=== PATIENT | male | born 1975 | race Caucasian/White ===

== ENCOUNTER 2016-12-25 02:19 | Emergency (ER) | payer SELFPAY ==
[~2016-12-25] VITALS: Ht 190.5 cm; Wt 131.5 kg
[2016-12-25 02:20] VITALS: BP_SYST 118
--- NOTE | 2016-12-25 02:49 | NUR ---
Patient to ER bed 8 to gown for evaluation. Side rails up. Report given to Jani PYLE.
--- NOTE | 2016-12-25 02:50 | NUR ---
Pt states that around midnight, pt fell off the top off of a 13 ft ladder and landed on his L side. Pt denies KO. Pt states that "it knocked the wind out of me." His whole L side is sore and tender 07/01. No obvious deformities noted. Pupils PERRLA. Good ROM in all extremities. Will continue to monitor. No other injuries or complaints mentioned/noted.
--- NOTE | 2016-12-25 02:55 | NUR ---
Pt placed in C collar per MD orders.
--- NOTE | 2016-12-25 02:55 | NUR ---
ER Dr. Boyle at bedside examining patient.
--- NOTE | 2016-12-25 03:15 | NUR ---
# 18 gauge angiocath placed to R hand. Use of asceptic technique. Opsite placed over site. Blood return noted. Blood for lab drawn from site. Flushed with 10 cc of normal saline. No evidence of infiltration noted. Patient tolerated well.
[2016-12-25] MEDS ORDERED: KETOROLAC TROMETHAMINE 30 MG VIAL IVP ONE (03:30)
[2016-12-25 03:46] LABS: BILIRUBIN,URINE NEGATIVE (NEGATIVE); BLOOD, URINE NEGATIVE (NEGATIVE); CLARITY/URINE CLEAR (CLEAR); COLOR,URINE YELLOW (YELLOW); GLUCOSE,URINE NEGATIVE (NEGATIVE); KETONES,URINE NEGATIVE (NEGATIVE); LEUKOCYTE ESTERASE ,URINE NEGATIVE (NEGATIVE); NITRITE, URINE NEGATIVE (NEGATIVE); PROTEIN URINE NEGATIVE (NEGATIVE); UROBILINOGEN,URINE 0.2 (0.2-1.0)
[2016-12-25 03:48] LABS: ANION GAP 6 (5-15); CALCIUM 9.1 mg/dL (8.4-11.0); CHLORIDE 96 mmol/L (98-107); CREATININE 0.93 mg/dL (0.55-1.30); GLUCOSE 94 mg/dL (70-99); POTASSIUM 3.8 mmol/L (3.5-5.1); SODIUM SERUM 131 mmol/L (136-145); UREA NITROGEN, BLOOD 12 mg/dL (8-21)
[2016-12-25 03:53] LABS: ALANINE AMINOTRANSFERASE 23 U/L (12-78); ALBUMIN 3.9 g/dL (3.4-4.8); ASPARTATE AMINOTRANSFERASE 11 U/L (10-37); GFR AFRICAN AMERICAN 115 mL/min (>90); TOTAL BILIRUBIN 0.4 mg/dL (0.0-1.0)
[2016-12-25 03:54] LABS: ALCOHOL, BLOOD < 3 mg/dL (<10)
[2016-12-25 03:55] LABS: BASOPHILS # (AUTO) 0.1 K/uL (0.0-0.2); BASOPHILS % (AUTO) 1.6 % (0.0-2.0); EOSINOPHILS # (AUTO) 0.1 K/uL (0.0-0.4); EOSINOPHILS % (AUTO) 1.9 % (0.0-4.0); HEMATOCRIT 41.7 % (36-54); LYMPHOCYTES # (AUTO) 1.8 K/uL (1.0-5.5); LYMPHOCYTES % (AUTO) 27.3 % (20.5-51.5); MEAN CORPUSCULAR HEMOGLOBIN 29 pg (27-31); MEAN CORPUSCULAR HGB CONC 34 % (32-36); MEAN CORPUSCULAR VOLUME 87 fL (79.0-98.0); MONOCYTES # (AUTO) 0.6 K/uL (0.0-1.0); NEUTROPHILS # (AUTO) 4.1 K/uL (1.8-7.7); NEUTROPHILS % (AUTO) 60.2 % (40.0-70.0); PLATELET COUNT (AUTO) 261 K/uL (130-430); RED CELL DISTRIBUTION WIDTH 14.3 % (9.0-15.0); WHITE BLOOD COUNT (AUTO) 6.7 K/uL (4.8-10.8)
[2016-12-25 03:57] LABS: BARBITURATE, URINE NEGATIVE (NEG <=200); BENZODIAZEPINE, URINE NEGATIVE (NEG <=150); CANNABINOID, URINE POSITIVE (NEG <=50); COCAINE, URINE NEGATIVE (NEG <=150); METHAMPHETAMINES SCREEN,URINE NEGATIVE (NEG <=500); OPIATE, URINE POSITIVE (NEG <=100); PHENCYCLIDINE SCREEN,URINE NEGATIVE (NEG <=25); UR TRICYCLIC ANTIDEPRESSANTS POSITIVE (NEG <=300); URINE AMPHETAMINE NEGATIVE (NEG <=500); URINE METHADONE NEGATIVE (NEG <=200); URINE OXYCODONE SCREEN NEGATIVE (NEG <=100); URINE PROPOXYPHENE SCREEN NEGATIVE (NEG <=300)
[2016-12-25 04:22] VITALS: BP_SYST 118
--- NOTE | 2016-12-25 04:22 | NUR ---
Patient given written and verbal discharge instructions and verbalizes understanding. ER MD discussed with patient the results and treatment provided. Patient in stable condition. ID arm band removed. IV catheter removed intact and dressing applied, no active bleeding. Rx of Motrin given. Patient educated on pain management and to follow up with PMD. Pain Scale 2/10. Opportunity for questions provided and answered.
== END 2016-12-25 04:22 | disposition home or self-care (01) ==
LOC: SED 02:19
DX: S40.012A Contusion of left shoulder, initial encounter (principal); R07.81 Pleurodynia; F17.200 Nicotine dependence, unspecified, uncomplicated; W11.XXXA Fall on and from ladder, initial encounter; Y93.89 Activity, other specified; Y99.8 Other external cause status; Y92.89 Other specified places as the place of occurrence of the external cause
CPT/HCPCS: 29105; 36415; 71010; 71110; 72040; 73030; 80053; 80307; 81003; 85025; 96374; 99285; G0482; J1885

== ENCOUNTER 2020-02-17 01:11 | Emergency (ER) | payer MEDICAID ==
[~2020-02-17] VITALS: Ht 190.5 cm; Wt 136.1 kg
[2020-02-17 01:15] VITALS: BP_SYST 156
--- NOTE | 2020-02-17 01:15 | NUR ---
Patient to ER bed HALLWAY 1 to gown for evaluation. Side rails up. ASSUMED CARE OF PT.
--- NOTE | 2020-02-17 01:50 | NUR ---
ER DR. ROBLERO at bedside examining patient.
[2020-02-17] MEDS ORDERED: MORPHINE 4 MG/ML INJ. SYRINGE IM ONE (02:00)
[2020-02-17] MEDS ORDERED: KETOROLAC TROMETHAMINE 60 MG/2 ML VIAL IM ONE (02:00)
--- NOTE | 2020-02-17 02:05 | NUR ---
PT MEDICATED FOR 9/10 PAIN SCALE-SEE MEDICATION ADMINISTRATION RECORD.
[2020-02-17 02:50] VITALS: BP_SYST 156
--- NOTE | 2020-02-17 02:50 | NUR ---
Patient given written and verbal discharge instructions and verbalizes understanding. DR. ANNIKA WALTER MD discussed with patient the results and treatment provided. Patient in stable condition. ID arm band removed. Rx of given. Patient educated on pain management and to follow up with PMD. Pain Scale 2/10. Opportunity for questions provided and answered. Medication side effect fact sheet provided.
== END 2020-02-17 02:50 | disposition home or self-care (01) ==
LOC: SED 01:11
DX: M54.5 Low back pain (principal); Z87.891 Personal history of nicotine dependence; Z86.73 Personal history of transient ischemic attack (TIA), and cerebral infarction without residual deficits
CPT/HCPCS: 96372; 99284; J1885; J2270

== ENCOUNTER 2020-03-18 20:07 | Emergency (ER) | payer MEDICAID ==
[~2020-03-18] VITALS: Ht 190.5 cm; Wt 128.8 kg
[2020-03-18 20:12] VITALS: BP_SYST 153
--- NOTE | 2020-03-18 21:34 | NUR ---
Salinas dumont in [facility] - 03/18/20 at 2139 by SDEDPR Patient to JOSE ANGEL jo for evaluation. Side rails up.
--- NOTE | 2020-03-18 21:34 | NUR ---
Patient to ER bed nielsen to gown for evaluation. Side rails up.
--- NOTE | 2020-03-18 21:35 | NUR ---
Ambulatory to ER A&O from home s/p fusion sx x 1 week c/o pain to back.Noted bleeding from the surgery site.
--- NOTE | 2020-03-18 21:36 | NUR ---
ER at bedside examining patient.
[2020-03-18] MEDS ORDERED: fentaNYL CITRATE/PF 100 MCG/2 ML AMP IVP ONE ×2 (21:45→22:45)
[2020-03-18] MEDS ORDERED: NACL 0.9% 1,000 ML IV ONE (21:45)
[2020-03-18] MEDS ORDERED: ONDANSETRON HCL 4 MG/2 ML VIAL IVP ONE (21:45)
--- NOTE | 2020-03-18 22:02 | NUR ---
# 20 gauge angiocath placed to RT AC. Use of asceptic technique. Opsite placed over site. Blood return noted. Blood for lab drawn from site. Flushed with 10 cc of normal saline. No evidence of infiltration noted. Patient tolerated well.
--- NOTE | 2020-03-18 22:12 | NUR ---
DR Woody spoke to Dr Heredia(anesthesiologist carbon setter).
[2020-03-18 22:19] LABS: BASOPHILS # (AUTO) 0.1 K/uL (0.0-0.2); BASOPHILS % (AUTO) 0.8 % (0.0-2.0); EOSINOPHILS # (AUTO) 0.1 K/uL (0.0-0.4); EOSINOPHILS % (AUTO) 1.6 % (0.0-4.0); HEMATOCRIT 35.8 % (36-54); HEMOGLOBIN 11.7 g/dL (14.0-18.0); LYMPHOCYTES # (AUTO) 1.7 K/uL (1.0-5.5); LYMPHOCYTES % (AUTO) 20.6 % (20.5-51.5); MEAN CORPUSCULAR HEMOGLOBIN 27 pg (27-31); MEAN CORPUSCULAR HGB CONC 33 % (32-36); MEAN CORPUSCULAR VOLUME 83 fL (79.0-98.0); MONOCYTES % (AUTO) 12.2 % (1.7-9.3); NEUTROPHILS # (AUTO) 5.5 K/uL (1.8-7.7); NEUTROPHILS % (AUTO) 64.8 % (40.0-70.0); PLATELET COUNT (AUTO) 504 K/uL (130-430); RED BLOOD CELL COUNT(AUTO) 4.34 MIL/uL (4.2-6.2); WHITE BLOOD COUNT (AUTO) 8.4 K/uL (4.8-10.8)
[2020-03-18 22:27] LABS: CALCIUM 8.8 mg/dL (8.4-11.0); CREATININE 0.96 mg/dL (0.55-1.30); POTASSIUM 4.1 mmol/L (3.5-5.1)
[2020-03-18 22:30] LABS: PROTHROMBIN TIME 10.3 SECS (9.5-12.5)
[2020-03-18 22:33] LABS: ALBUMIN 3.4 g/dL (3.4-4.8); TOTAL BILIRUBIN 0.1 mg/dL (0.0-1.0)
--- NOTE | 2020-03-18 22:38 | NUR ---
Dr Woody re-eval pt at the bedside.
--- NOTE | 2020-03-18 23:00 | NUR ---
REINFORCED SURGICAL SPINAL DRESSING WITH 2X2 AND TRANSPARENT DRESSING
--- NOTE | 2020-03-18 23:07 | NUR ---
Patient given written and verbal discharge instructions and verbalizes understanding. DR. LAKISHA WALTER MD discussed with patient the results and treatment provided. Patient in stable condition. ID arm band removed. IV catheter removed intact and dressing applied, no active bleeding. Rx of IBUPROFEN AND TRAMADOL given. Patient educated on pain management and to follow up with PMD. Pain Scale 2/10. Opportunity for questions provided and answered. Medication side effect fact sheet provided.
[2020-03-18 23:08] VITALS: BP_SYST 146
== END 2020-03-18 23:07 | disposition home or self-care (01) ==
LOC: SED 20:07
DX: M54.5 Low back pain (principal); F17.210 Nicotine dependence, cigarettes, uncomplicated; Z71.6 Tobacco abuse counseling; Y83.8 Other surgical procedures as the cause of abnormal reaction of the patient, or of later complication, without mention of misadventure at the time of the procedure
CPT/HCPCS: 36415; 80053; 85025; 85610; 85730; 96374; 96375; 96376; 99284; J2405; J3010; J7030

== ENCOUNTER 2020-04-25 21:25 | Emergency (ER) | payer MEDICAID ==
[~2020-04-25] VITALS: Ht 182.9 cm; Wt 90.7 kg
[2020-04-25 21:44] VITALS: BP_SYST 138
--- NOTE | 2020-04-25 22:38 | NUR ---
Patient to ER bed 5 to gown for evaluation. Side rails up.
--- NOTE | 2020-04-25 22:40 | NUR ---
pt a&o x4 c/o of lower and middle back pain after he fell off one stair around 6pm. pt reports having back surgery on March 23 at [facility] for fusion surgery from his sacrum to thoracic. pt states after he fell his pain started immediately. pt rates his pain 9/10 & describes it as constant throbbing and sharp and has intermittent cramps. pt denies taking pain meds today. pt hx of HTN and bipolar
--- NOTE | 2020-04-25 23:15 | NUR ---
ER Dr. PAYNE at bedside examining patient.
--- NOTE | 2020-04-25 23:56 | NUR ---
LAB AT BEDSIDE.
--- NOTE | 2020-04-26 00:10 | NUR ---
Patient transported to radiology via GURNEY, accompanied by KIP.
[2020-04-26] MEDS ORDERED: KETOROLAC TROMETHAMINE 60 MG/2 ML VIAL IM ONE (00:15)
[2020-04-26 00:27] LABS: BASOPHILS # (AUTO) 0.2 K/uL (0.0-0.2); BASOPHILS % (AUTO) 1.8 % (0.0-2.0); EOSINOPHILS # (AUTO) 0.4 K/uL (0.0-0.4); EOSINOPHILS % (AUTO) 4.3 % (0.0-4.0); HEMATOCRIT 33.9 % (36-54); HEMOGLOBIN 11.3 g/dL (14.0-18.0); LYMPHOCYTES # (AUTO) 2.7 K/uL (1.0-5.5); LYMPHOCYTES % (AUTO) 27.9 % (20.5-51.5); MEAN CORPUSCULAR HEMOGLOBIN 26 pg (27-31); MEAN CORPUSCULAR HGB CONC 33 % (32-36); MEAN CORPUSCULAR VOLUME 78 fL (79.0-98.0); MONOCYTES # (AUTO) 0.9 K/uL (0.0-1.0); MONOCYTES % (AUTO) 9.3 % (1.7-9.3); NEUTROPHILS # (AUTO) 5.4 K/uL (1.8-7.7); NEUTROPHILS % (AUTO) 56.7 % (40.0-70.0); PLATELET COUNT (AUTO) 382 K/uL (130-430); RED BLOOD CELL COUNT(AUTO) 4.32 MIL/uL (4.2-6.2); RED CELL DISTRIBUTION WIDTH 16.6 % (9.0-15.0); WHITE BLOOD COUNT (AUTO) 9.6 K/uL (4.8-10.8)
--- NOTE | 2020-04-26 01:06 | NUR ---
pt reports pain is still a 9 out of 10. MD notified, waiting for medication order.
[2020-04-26] MEDS ORDERED: MORPHINE 4 MG/ML INJ. SYRINGE IM ONE (01:15)
--- NOTE | 2020-04-26 01:17 | NUR ---
dr. gregory at bedside speaking with patient about plan of care.
--- NOTE | 2020-04-26 01:20 | NUR ---
pt immobilized and educated on risks of moving his back with fractured julita hardware at the level of L3-L4, causing severe irreversible damage, such as paralysis. patient stabilized and laying flat on back, made as comfortable as possible.
--- NOTE | 2020-04-26 01:39 | NUR ---
spoke with abigail, case management, she is going to see if pt is able to be transferred to one of our facilities or needs to be transferred out. she will be giving a call back.
--- NOTE | 2020-04-26 01:50 | NUR ---
pt given warm compresses to apply to lower back.
--- NOTE | 2020-04-26 02:00 | NUR ---
Note julia in ED - 04/26/20 at 0313 by EMERALD pt immobilized and educated on risks of moving his back with fractured julita hardware at the level of L3-L4, causing severe irreversible damage, such as paralysis. patient stabilized and laying flat on back, made as comfortable as possible.
--- NOTE | 2020-04-26 02:30 | NUR ---
pt reports his pain is a 8 out of 10. md aware.
[2020-04-26] MEDS ORDERED: MORPHINE 2 MG/ML INJ. SYRINGE IVP ONE ×3 (02:45→06:00)
--- NOTE | 2020-04-26 02:50 | NUR ---
# 20 gauge angiocath placed to right hand. Use of asceptic technique. Opsite placed over site. Blood return noted. Flushed with 10 cc of normal saline. No evidence of infiltration noted. Patient tolerated well.
--- NOTE | 2020-04-26 03:15 | NUR ---
dr. gregory speaking with dr. santana, surgeon from [facility] who performed pts surgery.
--- NOTE | 2020-04-26 03:30 | NUR ---
pt pain is a 7 out of 10. md notified.
--- NOTE | 2020-04-26 04:18 | NUR ---
pt reports pain has decreased to a 5 out of 10.
--- NOTE | 2020-04-26 05:52 | NUR ---
pt reports his pain has spiked again at a 9 out of 10. md notified.
--- NOTE | 2020-04-26 06:40 | NUR ---
Called [facility] to get update on pt transfer. At the moment, will be waiting for an Admit Doc at [facility] to accept pt. Pt will be a PUI until proven otherwise. spoke to Sue
--- NOTE | 2020-04-26 06:46 | NUR ---
[facility] vital signs stable. pt states pain is now 7 out of 10.
--- NOTE | 2020-04-26 07:09 | NUR ---
report given to LASHANDA Bauer for continuation of care.
--- NOTE | 2020-04-26 07:20 | NUR ---
recieved report. pt in bed,instructed to remain as still as possible. blankets used to assist in immobilizing spine. Pt awaiting transfer. VSS.
--- NOTE | 2020-04-26 07:30 | NUR ---
RILEY, PT MENTAL RETARDATION NURSE, CALLED FOR UPDATE. UPDATED CM ON PT STATUS. RILEY WILL CALL THEIR DOCTOR AT [facility], DR. TIERNEY, TO SEE IF THEY WILL ACCEPT PT. AWAITING RILEY'S UPDATE REGAREDIG PT TRANSFER.
--- NOTE | 2020-04-26 07:43 | NUR ---
pt will be accepted by [facility] and consulted by dr. santana. [facility] spoke to abigail plas[facility] tc:[phone] shoe caser: Rohan : [phone]
--- NOTE | 2020-04-26 08:48 | NUR ---
Pt. in [facility],side rails up. C/O continuing pain to lower back.
[2020-04-26] MEDS ORDERED: MORPHINE 4 MG/ML INJ. SYRINGE IVP ONE (09:00)
--- NOTE | 2020-04-26 09:01 | NUR ---
calling to see if there is any update on bed assignment. dr. mcadams has called to accept pt. , but still awaiting bed assignment. spoke to riley
[2020-04-26] MEDS ORDERED: RIVA20TA PO (09:07)
[2020-04-26] MEDS ORDERED: INSNPH7030 (09:12)
[2020-04-26] MEDS ORDERED: LIP40 PO (09:12)
[2020-04-26] MEDS ORDERED: DILT180C67 PO (09:12)
[2020-04-26] MEDS ORDERED: ATEN50TA PO (09:12)
[2020-04-26] MEDS ORDERED: FURO-150 PO (09:12)
[2020-04-26] MEDS ORDERED: POTA10TA15 PO (09:12)
[2020-04-26] MEDS ORDERED: FENO160 PO (09:12)
--- NOTE | 2020-04-26 10:08 | NUR ---
pt in [facility] side rails up. Medication was helpful per pt. VSS.
--- NOTE | 2020-04-26 10:25 | NUR ---
spoke to Dr. Jules. Asking when pt will be transferred to [facility]. Awaiting room and transfer.
--- NOTE | 2020-04-26 10:53 | NUR ---
calling to see if there is any bed update no bed assignment spoke to riley
--- NOTE | 2020-04-26 11:59 | NUR ---
calling Rohan case management coordinator, to see if there are any other options for transfer. LIAM stated [facility] was the only option had at the time. call transferred to LASHANDA Bauer for further update on pt status. Addendum: 04/26/20 at 1203 by EMILY Rohan stated that he will try other hospitals.
--- NOTE | 2020-04-26 12:08 | NUR ---
spoke with child welfare manager. [facility] does not have any current beds available. child welfare manager said he would contact Dr. Jules regarding if he practices in any other facilities.
--- NOTE | 2020-04-26 13:00 | NUR ---
Spoke to ER physician regarding radiology. Pt to be discharged instead of transferred. VSS
--- NOTE | 2020-04-26 13:09 | NUR ---
pt climbed over bed rail and went to bathroom. steady gait noted. Pt reminded to remain in bed. Urinal is at bedside. Pt said I just needed to use the bathroom. VSS
--- NOTE | 2020-04-26 13:27 | NUR ---
calling alicia, manager case management, to update pt that dr. santana and dr. sadler agreed to send pt home on pain mngmt.
--- NOTE | 2020-04-26 13:30 | NUR ---
attempted to call transfer center at [facility] to update on pt discharge home. Every call transferred to transfer center call would disconnect. called mulitiple times.
[2020-04-26 13:47] VITALS: BP_SYST 146
--- NOTE | 2020-04-26 13:47 | NUR ---
Patient given written and verbal discharge instructions and verbalizes understanding. ER MD Azar discussed with patient the results and treatment provided. Patient in stable condition. ID arm band removed. IV catheter removed intact and dressing applied, no active bleeding. Rx of Ibuprofen given. Patient educated on pain management and to follow up with PMD. Pain Scale 3/10. Opportunity for questions provided and answered. Medication side effect fact sheet provided.
== END 2020-04-26 13:47 | disposition home or self-care (01) ==
LOC: SED 21:25
DX: S32.039A Unspecified fracture of third lumbar vertebra, initial encounter for closed fracture (principal); S32.049A Unspecified fracture of fourth lumbar vertebra, initial encounter for closed fracture; W18.40XA Slipping, tripping and stumbling without falling, unspecified, initial encounter; Y93.89 Activity, other specified; Y92.89 Other specified places as the place of occurrence of the external cause; Y99.8 Other external cause status
CPT/HCPCS: 36415; 72128; 72131; 85025; 96372; 96374; 96376; 99285; J1885; J2270 ×2

== ENCOUNTER 2021-03-24 23:55 | Emergency (ER) | payer MEDICAID ==
[~2021-03-24] VITALS: Ht 190.5 cm; Wt 106.6 kg
[~2021-03-24 23:55] MED LIST: ATEN50TA PO; DILT180C67 PO; FENO160 PO; FURO-150 PO; INSNPH7030; LIP40 PO; POTA10TA15 PO; RIVA20TA PO
[2021-03-25 00:45] VITALS: BP_SYST 145
--- NOTE | 2021-03-25 00:45 | NUR ---
Patient to ER bed H1 to gown for evaluation. Side rails up. Report given to Maurizio.
--- NOTE | 2021-03-25 01:22 | NUR ---
VSS no s/s of acute distress Resting on gurney rails up
--- NOTE | 2021-03-25 01:30 | NUR ---
Pt BIB family to ED C/O back pain since Friday. spinal fusion x1 1/2 months ago, reinjured back on Friday. No other complaints noted VSS no s/s of acute distress Resting on gurCTERA Networks rails up
--- NOTE | 2021-03-25 02:00 | NUR ---
Dr. Ochoa [facility] for pt eval
[2021-03-25] MEDS ORDERED: DEXAMETHASONE SOD PHOSPHATE 10 MG/ML VIAL IVP ONE (02:30)
[2021-03-25] MEDS ORDERED: DIAZEPAM 10 MG/2 ML DISP.SYRIN IVP ONE (02:30)
[2021-03-25] MEDS ORDERED: MORPHINE 4 MG INJ. 4 MG/ML VIAL IVP ONE (02:30)
[2021-03-25] MEDS ORDERED: DIAZEPAM 10 MG/2 ML DISP.SYRIN ONE (03:10)
--- NOTE | 2021-03-25 03:20 | NUR ---
Portable X Ray bedside for pt eval
[2021-03-25] MEDS ORDERED: LORazepam 2 MG/ML VIAL IVP ONE (03:30)
[2021-03-25 03:31] LABS: BASOPHILS # (AUTO) 0.1 K/uL (0.0-0.2); BASOPHILS % (AUTO) 0.7 % (0.0-2.0); EOSINOPHILS # (AUTO) 0.1 K/uL (0.0-0.4); EOSINOPHILS % (AUTO) 1.8 % (0.0-4.0); HEMOGLOBIN 11.6 g/dL (14.0-18.0); LYMPHOCYTES # (AUTO) 2.4 K/uL (1.0-5.5); LYMPHOCYTES % (AUTO) 32.5 % (20.5-51.5); MEAN CORPUSCULAR HEMOGLOBIN 24 pg (27-31); MEAN CORPUSCULAR HGB CONC 31 % (32-36); MEAN CORPUSCULAR VOLUME 76 fL (79.0-98.0); MONOCYTES # (AUTO) 0.8 K/uL (0.0-1.0); MONOCYTES % (AUTO) 11.5 % (1.7-9.3); NEUTROPHILS # (AUTO) 3.9 K/uL (1.8-7.7); NEUTROPHILS % (AUTO) 53.5 % (40.0-70.0); PLATELET COUNT (AUTO) 373 K/uL (130-430); RED BLOOD CELL COUNT(AUTO) 4.85 MIL/uL (4.2-6.2); RED CELL DISTRIBUTION WIDTH 18.3 % (9.0-15.0); WHITE BLOOD COUNT (AUTO) 7.3 K/uL (4.8-10.8)
[2021-03-25 03:33] LABS: CALCIUM 8.9 mg/dL (8.4-11.0); CREATININE 0.7 mg/dL (0.55-1.30)
[2021-03-25 04:27] LABS: ERYTHROCYTE SEDIMENTATION RATE 12 MM/HR (0-15)
[2021-03-25] MEDS ORDERED: MORPHINE SULFATE 10 MG/ML VIAL IVP ONE (04:30)
--- NOTE | 2021-03-25 04:30 | NUR ---
Pt remains in stable condition, resting on gurney rails up
[2021-03-25] MEDS ORDERED: PRED20TA PO (05:05)
[2021-03-25] MEDS ORDERED: DIAZ5TAB PO (05:05)
[2021-03-25 05:45] VITALS: BP_SYST 145
--- NOTE | 2021-03-25 05:45 | NUR ---
Patient given written and verbal discharge instructions and verbalizes understanding. ER MD discussed with patient the results and treatment provided. Patient in stable condition. ID arm band removed. IV catheter removed intact and dressing applied, no active bleeding. Rx of Valium given. Patient educated on pain management and to follow up with PMD. Pain Scale 0/10 Opportunity for questions provided and answered. Medication side effect fact sheet provided.
== END 2021-03-25 05:45 | disposition home or self-care (01) ==
LOC: SED 23:55
DX: M54.16 Radiculopathy, lumbar region (principal); Z98.1 Arthrodesis status; Z79.899 Other long term (current) drug therapy
CPT/HCPCS: 36415; 72100; 80048; 85025; 85651; 96374; 96375; 96376; 99284; J1100; J2060; J2270 ×2; J3360

== ENCOUNTER 2021-03-27 00:13 | Emergency (ER) | payer MEDICAID ==
[~2021-03-27] VITALS: Ht 190.5 cm; Wt 106.6 kg
[~2021-03-27 00:13] MED LIST changes: +DIAZ5TAB PO; +PRED20TA PO
[2021-03-27 00:25] VITALS: BP_SYST 128
[2021-03-27] MEDS ORDERED: LORazepam 2 MG/ML VIAL IVP ONE (01:15)
[2021-03-27] MEDS ORDERED: MORPHINE 4 MG INJ. 4 MG/ML VIAL IVP ONE (01:15)
[2021-03-27] MEDS ORDERED: DEXAMETHASONE SOD PHOSPHATE 10 MG/ML VIAL IVP ONE (01:15)
[2021-03-27] MEDS ORDERED: MORPHINE 4 MG INJ. 4 MG/ML VIAL ONE (01:35)
[2021-03-27 01:56] LABS: BASOPHILS # (AUTO) 0.1 K/uL (0.0-0.2); BASOPHILS % (AUTO) 0.8 % (0.0-2.0); EOSINOPHILS # (AUTO) 0.1 K/uL (0.0-0.4); EOSINOPHILS % (AUTO) 1.6 % (0.0-4.0); HEMATOCRIT 34.1 % (36-54); HEMOGLOBIN 10.9 g/dL (14.0-18.0); LYMPHOCYTES # (AUTO) 2.3 K/uL (1.0-5.5); LYMPHOCYTES % (AUTO) 30.9 % (20.5-51.5); MEAN CORPUSCULAR HEMOGLOBIN 25 pg (27-31); MEAN CORPUSCULAR HGB CONC 32 % (32-36); MEAN CORPUSCULAR VOLUME 77 fL (79.0-98.0); MONOCYTES % (AUTO) 13.6 % (1.7-9.3); NEUTROPHILS % (AUTO) 53.1 % (40.0-70.0); PLATELET COUNT (AUTO) 361 K/uL (130-430); RED BLOOD CELL COUNT(AUTO) 4.44 MIL/uL (4.2-6.2); WHITE BLOOD COUNT (AUTO) 7.6 K/uL (4.8-10.8)
[2021-03-27 02:07] LABS: CALCIUM 8.7 mg/dL (8.4-11.0); CREATININE 0.86 mg/dL (0.55-1.30); POTASSIUM 4.6 mmol/L (3.5-5.1)
[2021-03-27] MEDS ORDERED: fentaNYL CITRATE/PF 100 MCG/2 ML AMP IVP ONE (02:15)
[2021-03-27 02:47] LABS: ERYTHROCYTE SEDIMENTATION RATE 6 MM/HR (0-15)
[2021-03-27 03:51] VITALS: BP_SYST 123
== END 2021-03-27 03:51 | disposition home or self-care (01) ==
LOC: SED 00:13
DX: M54.16 Radiculopathy, lumbar region (principal); I10 Essential (primary) hypertension; Z79.899 Other long term (current) drug therapy; Z79.4 Long term (current) use of insulin
CPT/HCPCS: 36415; 80048; 85025; 85651; 96374; 96375; 99284; J1100; J2060; J2270; J3010

== ENCOUNTER 2021-05-17 21:25 | Emergency (ER) | payer MEDICAID ==
[~2021-05-17] VITALS: Ht 190.5 cm; Wt 113.4 kg
[2021-05-17 21:50] VITALS: BP_SYST 147
--- NOTE | 2021-05-17 21:50 | NUR ---
PT TO REMAIN IN THE ER LOBBY UNTIL ER BED BECOMES AVAILABLE.
--- NOTE | 2021-05-17 23:50 | NUR ---
Patient to ER bed 8 for evaluation. Side rails up.
--- NOTE | 2021-05-17 23:53 | NUR ---
PT WALKED IN FROM HOME C/O INJURED BACK WHILE MOVING FURNITURE. ALSO REPORTS RIB PAIN. HAS CHRONIC INJURY WITH PAST FUSION.
--- NOTE | 2021-05-18 01:00 | NUR ---
Dr. Palma at bedside for MSE.
[2021-05-18] MEDS ORDERED: MORPHINE 4 MG INJ. 4 MG/ML VIAL IVP ONE (01:15)
[2021-05-18] MEDS ORDERED: IOHEXOL 350 mgI/mL, 150 ML INFUS..BTL IV ONE (02:14)
[2021-05-18 02:25] LABS: CALCIUM 9.2 mg/dL (8.4-11.0); CREATININE 0.81 mg/dL (0.55-1.30)
[2021-05-18 02:30] LABS: BASOPHILS % (AUTO) 0.6 % (0.0-2.0); EOSINOPHILS # (AUTO) 0.1 K/uL (0.0-0.4); EOSINOPHILS % (AUTO) 1.5 % (0.0-4.0); HEMATOCRIT 35.4 % (36-54); HEMOGLOBIN 11.4 g/dL (14.0-18.0); LYMPHOCYTES # (AUTO) 1.5 K/uL (1.0-5.5); LYMPHOCYTES % (AUTO) 24.9 % (20.5-51.5); MEAN CORPUSCULAR HEMOGLOBIN 25 pg (27-31); MEAN CORPUSCULAR HGB CONC 32 % (32-36); MEAN CORPUSCULAR VOLUME 77 fL (79.0-98.0); MONOCYTES % (AUTO) 16.6 % (1.7-9.3); NEUTROPHILS # (AUTO) 3.4 K/uL (1.8-7.7); NEUTROPHILS % (AUTO) 56.4 % (40.0-70.0); PLATELET COUNT (AUTO) 314 K/uL (130-430); RED BLOOD CELL COUNT(AUTO) 4.58 MIL/uL (4.2-6.2); RED CELL DISTRIBUTION WIDTH 21.1 % (9.0-15.0)
--- NOTE | 2021-05-18 03:15 | NUR ---
Patient resting quietly. No acute distress noted. Vital signs within normal range.
[2021-05-18] MEDS ORDERED: fentaNYL CITRATE/PF 100 MCG/2 ML AMP IVP ONE ×2 (04:00→05:30)
--- NOTE | 2021-05-18 05:14 | NUR ---
Dr. Palma at bedside updating patient on results
[2021-05-18 06:15] VITALS: BP_SYST 148
--- NOTE | 2021-05-18 06:15 | NUR ---
Patient given written and verbal discharge instructions and verbalizes understanding. ER MD discussed with patient the results and treatment provided. Patient in stable condition. ID arm band removed. IV catheter removed intact and dressing applied, no active bleeding. Rx of NONE given. Patient educated on pain management and to follow up with PMD. Pain Scale 3/10. Opportunity for questions provided and answered. Medication side effect fact sheet provided.
== END 2021-05-18 06:15 | disposition home or self-care (01) ==
LOC: SED 21:25
DX: R07.89 Other chest pain (principal); R10.11 Right upper quadrant pain; M54.5 Low back pain; I10 Essential (primary) hypertension; Z79.899 Other long term (current) drug therapy
CPT/HCPCS: 36415; 71260; 72128; 72131; 74177; 76376; 80048; 85025; 93005; 96374; 96375; 96376; 99285; J2270; J3010; Q9967

== ENCOUNTER 2021-08-10 23:38 | Emergency (ER) | payer MEDICAID ==
[~2021-08-10] VITALS: Ht 190.5 cm; Wt 117.9 kg
[2021-08-11 00:01] VITALS: BP_SYST 137
--- NOTE | 2021-08-11 00:45 | NUR ---
Patient to ER bed 3 to gown for evaluation. Side rails up. Report given to self.
--- NOTE | 2021-08-11 00:53 | NUR ---
ER Dr. Lugo at bedside examining patient.
--- NOTE | 2021-08-11 00:55 | NUR ---
Received patient to Er w/ c/o back pain. Patient is s/p back surgery on 07/20/2021, attempted to lift a 5 gallon bottle of water to place into the water container the felt a "pop, pop, pop." PT w/ no neuro focal deficits but c/o lle weakness. Introduced self to patient, positioned for comfort. bed to low position sr up. continue to monitor. Patient resting quietly. No acute distress noted. Vital signs within normal range.
--- NOTE | 2021-08-11 01:04 | NUR ---
ER Dr. gee at bedside examining patient.
[2021-08-11] MEDS ORDERED: DIPHENHYDRAMINE INJ 50 MG/ML VIAL IVP ONE ×2 (01:15→02:45)
[2021-08-11] MEDS ORDERED: fentaNYL CITRATE/PF 100 MCG/2 ML AMP IVP ONE ×2 (01:15→02:45)
--- NOTE | 2021-08-11 01:45 | NUR ---
# 22 gauge angiocath placed to right forearm. Use of asceptic technique. Opsite placed over site. Blood return noted. Flushed with 10 cc of normal saline. No evidence of infiltration noted. Patient tolerated well.
--- NOTE | 2021-08-11 01:50 | NUR ---
Medicated w/ 75mcg of fentanyl and 25mg of benadryl ivp.per MD orders. Will cont to monitor and observe for any adverse reaction. bed to low position sr up, continue to monitor. Patient transported to radiology via gurney to ct scan, accompanied by production grip.
--- NOTE | 2021-08-11 02:00 | NUR ---
Returned from radiology, back to [facility].
--- NOTE | 2021-08-11 02:26 | NUR ---
Patient resting quietly. No acute distress noted. Vital signs within normal range. States pain decreased from 10 to 8, requesting more pain medication. Positioned for comfort and safety w/ bed to low position sr up. continue to monitor.
[2021-08-11] MEDS ORDERED: CYCL10TA24 PO (02:49)
[2021-08-11] MEDS ORDERED: fentaNYL CITRATE/PF 100 MCG/2 ML AMP ONE (02:57)
[2021-08-11 03:30] VITALS: BP_SYST 118
--- NOTE | 2021-08-11 03:30 | NUR ---
Patient given written and verbal discharge instructions and verbalizes understanding. ER MD discussed with patient the results and treatment provided. Patient in stable condition. ID arm band removed. Rx of Flexeril given. Patient educated on pain management and to follow up with PMD. Pain Scale 5. Opportunity for questions provided and answered. Medication side effect fact sheet provided.
== END 2021-08-11 03:30 | disposition home or self-care (01) ==
LOC: SED 23:38
DX: M54.50 Low back pain, unspecified (principal); F12.90 Cannabis use, unspecified, uncomplicated; F17.290 Nicotine dependence, other tobacco product, uncomplicated; Z98.890 Other specified postprocedural states; Z79.899 Other long term (current) drug therapy
CPT/HCPCS: 72131; 76376; 96374; 96375; 96376; 99284; J1200; J3010

== ENCOUNTER 2021-10-30 05:15 | Emergency (ER) | payer MEDICAID ==
[~2021-10-30] VITALS: Ht 190.5 cm; Wt 115.2 kg
[~2021-10-30 05:15] MED LIST changes: +CYCL10TA24 PO
[2021-10-30 05:21] VITALS: BP_SYST 141
[2021-10-30 06:31] LABS: BILIRUBIN,URINE NEGATIVE (NEGATIVE); BLOOD, URINE 2+ (NEGATIVE); COLOR,URINE YELLOW (YELLOW); GLUCOSE,URINE NEGATIVE (NEGATIVE); KETONES,URINE NEGATIVE (NEGATIVE); LEUKOCYTE ESTERASE ,URINE NEGATIVE (NEGATIVE); NITRITE, URINE NEGATIVE (NEGATIVE); PROTEIN URINE NEGATIVE (NEGATIVE); UROBILINOGEN,URINE 0.2 (0.2-1.0)
[2021-10-30 06:32] LABS: CLARITY/URINE SLIGHTLY CLOUDY (CLEAR)
[2021-10-30 06:33] LABS: CALCIUM 8.5 mg/dL (8.4-11.0); CREATININE 0.72 mg/dL (0.55-1.30)
[2021-10-30 06:39] LABS: BASOPHILS % (AUTO) 0.8 % (0.0-2.0); EOSINOPHILS # (AUTO) 0.2 K/uL (0.0-0.4); EOSINOPHILS % (AUTO) 2.6 % (0.0-4.0); HEMATOCRIT 40.2 % (36-54); HEMOGLOBIN 13.2 g/dL (14.0-18.0); LYMPHOCYTES # (AUTO) 1.5 K/uL (1.0-5.5); LYMPHOCYTES % (AUTO) 24.8 % (20.5-51.5); MEAN CORPUSCULAR HEMOGLOBIN 25 pg (27-31); MEAN CORPUSCULAR HGB CONC 33 % (32-36); MEAN CORPUSCULAR VOLUME 76 fL (79.0-98.0); MONOCYTES # (AUTO) 0.9 K/uL (0.0-1.0); MONOCYTES % (AUTO) 15.1 % (1.7-9.3); NEUTROPHILS # (AUTO) 3.5 K/uL (1.8-7.7); NEUTROPHILS % (AUTO) 56.7 % (40.0-70.0); PLATELET COUNT (AUTO) 360 K/uL (130-430); RED BLOOD CELL COUNT(AUTO) 5.31 MIL/uL (4.2-6.2); RED CELL DISTRIBUTION WIDTH 20.2 % (9.0-15.0); WHITE BLOOD COUNT (AUTO) 6.1 K/uL (4.8-10.8)
[2021-10-30] MEDS ORDERED: ONDANSETRON HCL 4 MG/2 ML VIAL IVP ONE (06:45)
[2021-10-30] MEDS ORDERED: MORPHINE SULFATE 10 MG/ML VIAL IVP ONE (06:45)
[2021-10-30 08:04] LABS: BACTERIA,URINE FEW /HPF (None Seen); WBC,URINE 0-3 /HPF (0-3)
[2021-10-30] MEDS ORDERED: HYDROmorphone 1 MG/ML INJ. CARTRIDGE IVP ONE (08:30)
[2021-10-30] MEDS ORDERED: clonazePAM 0.5 MG TABLET PO ONE (10:00)
[2021-10-30 10:31] VITALS: BP_SYST 135
== END 2021-10-30 10:32 | disposition home or self-care (01) ==
LOC: SED 05:15
DX: M54.50 Low back pain, unspecified (principal); R31.9 Hematuria, unspecified; N28.1 Cyst of kidney, acquired; I10 Essential (primary) hypertension; Z79.899 Other long term (current) drug therapy
CPT/HCPCS: 36415; 72131; 73070; 74176; 76376; 80048; 81000; 85025; 96374; 96375; 99285; J1170; J2270; J2405

== ENCOUNTER 2021-11-02 02:36 | Emergency (ER) | payer MEDICAID ==
[~2021-11-02] VITALS: Ht 190.5 cm; Wt 115.7 kg
[2021-11-02 02:45] VITALS: BP_SYST 152
--- NOTE | 2021-11-02 02:45 | NUR ---
Patient to ER bed 3 to gown for evaluation. Side rails up. Report given to BRANDEE PYLE.
--- NOTE | 2021-11-02 02:45 | NUR ---
Pt report received. Pt c/o lower back pain since 3 PM yesterday. Pt states that he took [place] 15 mg about 5 hours ago with no relief in pain. He was seen here in ER on 10/30/2021 for same s/s.
--- NOTE | 2021-11-02 03:05 | NUR ---
Dr. Lugo at bedside.
[2021-11-02] MEDS ORDERED: MORPHINE SULFATE 10 MG/ML VIAL IM ONE (03:15)
[2021-11-02] MEDS ORDERED: KETOROLAC TROMETHAMINE 60 MG/2 ML VIAL IM ONE (03:15)
[2021-11-02] MEDS ORDERED: DIPHENHYDRAMINE INJ 50 MG/ML VIAL IM ONE (03:15)
[2021-11-02 03:50] VITALS: BP_SYST 125
--- NOTE | 2021-11-02 03:50 | NUR ---
Patient given written and verbal discharge instructions and verbalizes understanding. ER MD discussed with patient the results and treatment provided. Patient in stable condition. ID arm band removed. No Rx given. Patient educated on pain management and to follow up with PMD. Pain Scale 8/10, medicated prior to discharge and instructed to f/u with pain management physician. Opportunity for questions provided and answered. Medication side effect fact sheet provided.
== END 2021-11-02 03:50 | disposition home or self-care (01) ==
LOC: SED 02:36
DX: M54.50 Low back pain, unspecified (principal); I10 Essential (primary) hypertension; F12.90 Cannabis use, unspecified, uncomplicated; F17.290 Nicotine dependence, other tobacco product, uncomplicated
CPT/HCPCS: 96372; 99284; J1200; J1885; J2270

== ENCOUNTER 2022-01-03 05:58 | Emergency (ER) | payer MEDICAID ==
[~2022-01-03] VITALS: Ht 188 cm; Wt 115.7 kg
[2022-01-03 06:05] VITALS: BP_SYST 156
--- NOTE | 2022-01-03 06:07 | NUR ---
Patient to ER bed 4 to gown for evaluation. Side rails up. Report given to Shantel PYLE(josé miguel).
--- NOTE | 2022-01-03 06:07 | NUR ---
Pt brought self in from home do to c/o back pain xlast night. Pt reports he picked up his niece and onset of back pain started. Reports hx of spinal fusion. Arrived to ED in no acute distress. Breathing adequately on RA.
--- NOTE | 2022-01-03 06:08 | NUR ---
ER at bedside examining patient.
[2022-01-03] MEDS ORDERED: MORPHINE 4 MG INJ. 4 MG/ML VIAL IM ONE ×2 (06:15→09:45)
[2022-01-03] MEDS ORDERED: KETOROLAC TROMETHAMINE 60 MG/2 ML VIAL IM ONE (06:15)
--- NOTE | 2022-01-03 07:06 | NUR ---
Report endorsed to LASHANDA Mitchell
--- NOTE | 2022-01-03 07:13 | NUR ---
REPORT RECEIVED FROM LASHANDA GUZMAN FOR CONTINUING CARE
--- NOTE | 2022-01-03 07:45 | NUR ---
PT RESTING IN RDE GRAFF, NO DISTRESS NOTED
--- NOTE | 2022-01-03 08:45 | NUR ---
PT RESTING IN GURNEY, STATES PAIN IS STILL PRESENT BUT TOLERABLE. NO DISTRESS NOTED
--- NOTE | 2022-01-03 09:30 | NUR ---
PT REPORTS STILL HAVING LOWER BACK PAIN REQUESTING MORE PAIN MEDICATION. MADE AWARE
[2022-01-03] MEDS ORDERED: NAPR-690 PO (11:03)
[2022-01-03] MEDS ORDERED: ACET-2634 PO (11:05)
[2022-01-03 11:12] VITALS: BP_SYST 128
--- NOTE | 2022-01-03 11:13 | NUR ---
Patient given written and verbal discharge instructions and verbalizes understanding. ER MD GALLEGOS discussed with patient the results and treatment provided. Patient in stable condition. ID arm band removed. Rx of ES TYLENOL given. Patient educated on pain management and to follow up with PMD. Pain Scale 0. Opportunity for questions provided and answered. Medication side effect fact sheet provided.
== END 2022-01-03 11:13 | disposition home or self-care (01) ==
LOC: SED 05:58
DX: S33.5XXA Sprain of ligaments of lumbar spine, initial encounter (principal); I10 Essential (primary) hypertension; X50.0XXA Overexertion from strenuous movement or load, initial encounter; Y93.89 Activity, other specified; Y92.89 Other specified places as the place of occurrence of the external cause; Y99.8 Other external cause status
CPT/HCPCS: 96372; 99284; J1885; J2270

== ENCOUNTER 2022-03-14 16:09 | Emergency (ER) | payer MEDICAID ==
[~2022-03-14] VITALS: Ht 190.5 cm; Wt 113.4 kg
[~2022-03-14 16:09] MED LIST changes: +ACET-2634 PO
[2022-03-14 16:20] VITALS: BP_SYST 138
[2022-03-14] MEDS ORDERED: MORPHINE 4 MG INJ. 4 MG/ML VIAL IM ONE (18:30)
[2022-03-14] MEDS ORDERED: KETAMINE 30 MG/3 ML SYRINGE IM ONE (18:30)
[2022-03-14] MEDS ORDERED: DIPHENHYDRAMINE INJ 50 MG/ML VIAL IM ONE (19:45)
[2022-03-14 20:08] VITALS: BP_SYST 116
== END 2022-03-14 20:08 | disposition home or self-care (01) ==
LOC: SED 16:09
DX: G89.29 Other chronic pain (principal); M54.16 Radiculopathy, lumbar region; I10 Essential (primary) hypertension; Z79.4 Long term (current) use of insulin
CPT/HCPCS: 72100; 96372; 99284; J1200; J2270

== ENCOUNTER 2022-05-01 22:06 | Emergency (ER) | payer OTHER, MEDICAID ==
[~2022-05-01] VITALS: Ht 190.5 cm; Wt 111.1 kg
[2022-05-01 22:15] VITALS: BP_SYST 121
[2022-05-01] MEDS ORDERED: KETOROLAC TROMETHAMINE 60 MG/2 ML VIAL IM ONE (22:45)
--- NOTE | 2022-05-01 22:54 | NUR ---
LASHANDA CHEN CALLED IN WAITING ROOM, PARKING LOT/OUTSIDE AND HALWAY, WITHOUT ANSWER FOR PAIN MEDICATION.
--- NOTE | 2022-05-01 22:56 | NUR ---
PT IN XRAY PER CHARGE NURSE LASHANDA GARCIA
--- NOTE | 2022-05-01 23:00 | NUR ---
AMB BACK FROM XRAY WITH TECH TO WAITING ROOM. PT MEDICATED FOR PAIN PER ER MD ORDERS/ EMAR
[2022-05-01] MEDS ORDERED: NAPR-690 PO (23:27)
--- NOTE | 2022-05-01 23:36 | NUR ---
Unable to locate patient for discharge with MD Solis.
--- NOTE | 2022-05-01 23:51 | NUR ---
Nax2 for discharge
--- NOTE | 2022-05-02 00:22 | NUR ---
No answer for discharge x 3 at this time. aware. Pt neither inside or outside.
== END 2022-05-02 00:24 | disposition left against medical advice (07) ==
LOC: SED 22:06
DX: M54.50 Low back pain, unspecified (principal); I10 Essential (primary) hypertension; Z79.4 Long term (current) use of insulin; Z79.899 Other long term (current) drug therapy
CPT/HCPCS: 99283; 72110; 96372; J1885

== ENCOUNTER 2022-07-25 02:20 | Emergency (ER) | payer OTHER, MEDICAID ==
[~2022-07-25] VITALS: Ht 190.5 cm; Wt 117.9 kg
[~2022-07-25 02:20] MED LIST changes: +NAPR-690 PO
[2022-07-25 02:23] VITALS: BP_SYST 139
--- NOTE | 2022-07-25 02:27 | NUR ---
PT HERE C/O BACK PAIN S/P TC YESTERDAY MORNING AROUND 0830. 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 PMH:CHRONIC BACK PAIN AND UNDERWENT SPINAL FUSION SX LAST YEAR, BIPOLAR PT AAX4, NO SOB NOTED AND NAD. PENDING MD DASILVA
--- NOTE | 2022-07-25 02:48 | NUR ---
Patient to ER bed 2 to gown for evaluation. Side rails up.
--- NOTE | 2022-07-25 02:50 | NUR ---
JOSE ANGEL Reed at bedside examining patient.
--- NOTE | 2022-07-25 03:05 | NUR ---
Report given to Silva PYLE.
[2022-07-25] MEDS ORDERED: DIAZEPAM 5 MG TABLET (VALIUM) PO ONE (03:15)
[2022-07-25] MEDS ORDERED: HYDROmorphone 2 MG/ML VIAL IM ONE (03:15)
[2022-07-25] MEDS ORDERED: HYDROmorphone 1 MG/ML INJ. CARTRIDGE ONE (03:30)
[2022-07-25] MEDS ORDERED: HYDROmorphone 1 MG/ML INJ. CARTRIDGE IVP ONE ×2 (03:45→04:45)
[2022-07-25] MEDS ORDERED: iohexoL 300 mgI/mL, 150 ML INFUS..BTL IV ONE (03:57)
[2022-07-25 04:03] LABS: BASOPHILS # (AUTO) 0.1 K/uL (0.0-0.2); BASOPHILS % (AUTO) 1.9 % (0.0-2.0); EOSINOPHILS # (AUTO) 0.4 K/uL (0.0-0.4); EOSINOPHILS % (AUTO) 5.3 % (0.0-4.0); HEMATOCRIT 42.7 % (36-54); HEMOGLOBIN 14.5 g/dL (14.0-18.0); LYMPHOCYTES # (AUTO) 1.5 K/uL (1.0-5.5); LYMPHOCYTES % (AUTO) 20.4 % (20.5-51.5); MEAN CORPUSCULAR HEMOGLOBIN 28 pg (27-31); MEAN CORPUSCULAR HGB CONC 34 % (32-36); MEAN CORPUSCULAR VOLUME 84 fL (79.0-98.0); MONOCYTES # (AUTO) 1.2 K/uL (0.0-1.0); MONOCYTES % (AUTO) 16.8 % (1.7-9.3); NEUTROPHILS # (AUTO) 4.1 K/uL (1.8-7.7); NEUTROPHILS % (AUTO) 55.6 % (40.0-70.0); PLATELET COUNT (AUTO) 199 K/uL (130-430); RED BLOOD CELL COUNT(AUTO) 5.11 MIL/uL (4.2-6.2); RED CELL DISTRIBUTION WIDTH 17.9 % (9.0-15.0); WHITE BLOOD COUNT (AUTO) 7.3 K/uL (4.8-10.8)
[2022-07-25 04:26] LABS: PROTHROMBIN TIME 10.6 SECS (9.5-12.5)
--- NOTE | 2022-07-25 04:30 | NUR ---
PT REPORTS THAT HIS BACK PAIN IS RETURNING AND REPORTS 8/[address] PARDO MADE AWARE. AWAITING ORDERS.
--- NOTE | 2022-07-25 04:35 | NUR ---
URINE SAMPLE COLLECTED AND SENT TO LAB.
[2022-07-25 04:41] LABS: ANION GAP 7 (5-15); CALCIUM 9.2 mg/dL (8.4-11.0); CHLORIDE 104 mmol/L (98-107); CREATININE 0.88 mg/dL (0.55-1.30); GLUCOSE 102 mg/dL (70-99); UREA NITROGEN, BLOOD 17 mg/dL (8-21)
[2022-07-25 04:46] LABS: GFR AFRICAN AMERICAN 119 mL/min (>90)
[2022-07-25 04:53] LABS: ALANINE AMINOTRANSFERASE 12 U/L (12-78); ALBUMIN 3.6 g/dL (3.4-4.8); ASPARTATE AMINOTRANSFERASE 10 U/L (10-37); TOTAL BILIRUBIN 0.1 mg/dL (0.0-1.0)
--- NOTE | 2022-07-25 04:54 | NUR ---
PT TO CT VIA DAMIEN ACCOMPANIED BY STAFF.
[2022-07-25 04:55] LABS: ALCOHOL, BLOOD < 3 mg/dL (<10)
[2022-07-25 05:14] LABS: VALPROIC ACID 71 ug/mL (50-100)
[2022-07-25 05:36] VITALS: BP_SYST 126
[2022-07-25 06:00] LABS: BILIRUBIN,URINE NEGATIVE (NEGATIVE); BLOOD, URINE 1+ (NEGATIVE); COLOR,URINE YELLOW (YELLOW); GLUCOSE,URINE NEGATIVE (NEGATIVE); KETONES,URINE NEGATIVE (NEGATIVE); LEUKOCYTE ESTERASE ,URINE NEGATIVE (NEGATIVE); NITRITE, URINE NEGATIVE (NEGATIVE); PROTEIN URINE NEGATIVE (NEGATIVE); UROBILINOGEN,URINE 0.2 (0.2-1.0)
[2022-07-25 06:06] LABS: CLARITY/URINE HAZY (CLEAR)
--- NOTE | 2022-07-25 06:07 | NUR ---
Patient does not wish to proceed with medical care recommended by Dr. Valdez. Patient given information related to possible complications, up to and including , which could occur as a result of leaving hospital at this time. Patient verbalizes understanding of risks involved leaving against medical advice. Patient has signed AMA form. PATIENT AMBULATORY WITH STEADY GAIT, AND A&O X4. PATIENT STATES HE NEEDS TO LEAVE TO TEND TO FAMILY EMERGNECY.
[2022-07-25 06:09] LABS: BACTERIA,URINE None Seen /HPF (None Seen); MUCUS,URINE None Seen /LPF (None Seen); RBC,URINE 0-3 /HPF (0-3); WBC,URINE NONE SEEN /HPF (0-3)
[2022-07-25 06:13] LABS: BENZODIAZEPINE, URINE POSITIVE (NEG <=150); OPIATE, URINE POSITIVE (NEG <=100)
[2022-07-25 06:14] LABS: BARBITURATE, URINE NEGATIVE (NEG <=200); CANNABINOID, URINE NEGATIVE (NEG <=50); COCAINE, URINE NEGATIVE (NEG <=150); METHAMPHETAMINES SCREEN,URINE NEGATIVE (NEG <=500); PHENCYCLIDINE SCREEN,URINE NEGATIVE (NEG <=25); UR TRICYCLIC ANTIDEPRESSANTS NEGATIVE (NEG <=300); URINE AMPHETAMINE NEGATIVE (NEG <=500); URINE METHADONE NEGATIVE (NEG <=200); URINE OXYCODONE SCREEN POSITIVE (NEG <=100); URINE PROPOXYPHENE SCREEN NEGATIVE (NEG <=300)
== END 2022-07-25 06:07 | disposition left against medical advice (07) ==
LOC: SED 02:20
DX: S09.90XA Unspecified injury of head, initial encounter (principal); S39.91XA Unspecified injury of abdomen, initial encounter; S29.001A Unspecified injury of muscle and tendon of front wall of thorax, initial encounter; M54.50 Low back pain, unspecified; M54.6 Pain in thoracic spine; I10 Essential (primary) hypertension; Z79.4 Long term (current) use of insulin; Z79.899 Other long term (current) drug therapy; V43.52XA Car driver injured in collision with other type car in traffic accident, initial encounter; Y93.89 Activity, other specified; Y92.89 Other specified places as the place of occurrence of the external cause; Y99.8 Other external cause status
CPT/HCPCS: 99285; 70450; 96374; 80307; 80053; 83880; 80164; 85025; 85610; 84484; 36415; 93005; 71260; 72125; 74177; 96376; 81000; 76376; G0482; Q9967; J1170

== ENCOUNTER 2022-10-09 01:55 | Emergency (ER) | payer OTHER, MEDICAID ==
[~2022-10-09] VITALS: Ht 190.5 cm; Wt 109.8 kg
[2022-10-09 02:00] VITALS: BP_SYST 117
--- NOTE | 2022-10-09 02:00 | NUR ---
Patient triaged and placed in waiting room. VSS and patient appears in no acute distress at this time. Aawaiting available bed, and MD notified of need for MSE.
--- NOTE | 2022-10-09 03:18 | NUR ---
ER at bedside examining patient.
[2022-10-09] MEDS ORDERED: METH-634 PO (03:26)
[2022-10-09] MEDS ORDERED: LIDOINT TP (03:26)
[2022-10-09] MEDS ORDERED: NAPR-1172 PO (03:27)
[2022-10-09] MEDS ORDERED: LIDOCAINE PATCH 5% 1 EA TP ONE (03:30)
[2022-10-09] MEDS ORDERED: MORPHINE 4 MG INJ. 4 MG/ML VIAL IM ONE (03:30)
[2022-10-09] MEDS ORDERED: methocarbamoL 500 MG TABLET PO ONE (03:30)
[2022-10-09] MEDS ORDERED: ONDANSETRON 4 MG ODT TAB PO ONE (03:30)
--- NOTE | 2022-10-09 04:10 | NUR ---
Patient given written and verbal discharge instructions and verbalizes understanding. ER MD discussed with patient the results and treatment provided. Patient in stable condition. ID arm band removed. Rx of LIDOCAINE PATCH,ROBAXIN,NAPROSYN given. Patient educated on pain management and to follow up with PMD. Pain Scale 4/10. Opportunity for questions provided and answered. Medication side effect fact sheet provided.
[2022-10-09 04:12] VITALS: BP_SYST 120
== END 2022-10-09 04:12 | disposition home or self-care (01) ==
LOC: SED 01:55
DX: S13.4XXA Sprain of ligaments of cervical spine, initial encounter (principal); M54.50 Low back pain, unspecified; I11.0 Hypertensive heart disease with heart failure; I50.9 Heart failure, unspecified; V89.2XXA Person injured in unspecified motor-vehicle accident, traffic, initial encounter; Y93.89 Activity, other specified; Y92.89 Other specified places as the place of occurrence of the external cause; Y99.8 Other external cause status
CPT/HCPCS: 99283; 96372; Q0162; J2270

== ENCOUNTER 2023-01-04 22:53 | Emergency (ER) | payer MEDICAID ==
[~2023-01-04] VITALS: Ht 190.5 cm; Wt 113.4 kg
[~2023-01-04 22:53] MED LIST changes: +LIDOINT TP; +METH-634 PO; +NAPR-1172 PO
[2023-01-04 23:07] VITALS: BP_SYST 119
[2023-01-05] MEDS ORDERED: HYDROmorphone 1 MG/ML INJ. CARTRIDGE IVP ONE
[2023-01-05] MEDS ORDERED: LIDOCAINE PATCH 5% 1 EA TP ONE
[2023-01-05] MEDS ORDERED: KETOROLAC TROMETHAMINE 15 MG VIAL IVP ONE (01:15)
[2023-01-05] MEDS ORDERED: METHOCARBAMOL 1000 MG/10 ML VIAL IVP ONE (01:15)
[2023-01-05] MEDS ORDERED: CYCL10TA24 PO (01:23)
[2023-01-05] MEDS ORDERED: LIDO1ADH77 TP (01:23)
[2023-01-05] MEDS ORDERED: IBUP-1969 PO (01:23)
[2023-01-05 01:35] VITALS: BP_SYST 101
== END 2023-01-05 01:35 | disposition home or self-care (01) ==
LOC: SED 22:53
DX: S29.012A Strain of muscle and tendon of back wall of thorax, initial encounter (principal); S39.012A Strain of muscle, fascia and tendon of lower back, initial encounter; I10 Essential (primary) hypertension; Z79.4 Long term (current) use of insulin; Z87.828 Personal history of other (healed) physical injury and trauma; Z79.899 Other long term (current) drug therapy; X50.1XXA Overexertion from prolonged static or awkward postures, initial encounter; Y93.89 Activity, other specified; Y92.89 Other specified places as the place of occurrence of the external cause; Y99.8 Other external cause status
CPT/HCPCS: 99285; 72125; 96374; 96375; 72128; 72131; 76376; J1170; J1885; J2800

== ENCOUNTER 2023-02-16 16:22 | Emergency (ER) | payer MEDICAID ==
[~2023-02-16] VITALS: Ht 190.5 cm; Wt 102.1 kg
[~2023-02-16 16:22] MED LIST changes: +IBUP-1969 PO; +LIDO1ADH77 TP
[2023-02-16 16:39] VITALS: BP_SYST 109
[2023-02-16] MEDS ORDERED: KETOROLAC TROMETHAMINE 60 MG/2 ML VIAL IM ONE (16:45)
[2023-02-16] MEDS ORDERED: MORPHINE 4 MG INJ. 4 MG/ML VIAL IM ONE (16:45)
[2023-02-16 18:43] LABS: BASOPHILS % (AUTO) 0.7 % (0.0-2.0); EOSINOPHILS # (AUTO) 0.3 K/uL (0.0-0.4); EOSINOPHILS % (AUTO) 6.5 % (0.0-4.0); HEMATOCRIT 34.8 % (36-54); HEMOGLOBIN 11.7 g/dL (14.0-18.0); LYMPHOCYTES # (AUTO) 1.5 K/uL (1.0-5.5); LYMPHOCYTES % (AUTO) 34.3 % (20.5-51.5); MEAN CORPUSCULAR HEMOGLOBIN 29 pg (27-31); MEAN CORPUSCULAR HGB CONC 34 % (32-36); MEAN CORPUSCULAR VOLUME 86 fL (79.0-98.0); MONOCYTES # (AUTO) 0.4 K/uL (0.0-1.0); MONOCYTES % (AUTO) 9.9 % (1.7-9.3); NEUTROPHILS # (AUTO) 2.1 K/uL (1.8-7.7); NEUTROPHILS % (AUTO) 48.6 % (40.0-70.0); PLATELET COUNT (AUTO) 212 K/uL (130-430); RED BLOOD CELL COUNT(AUTO) 4.07 MIL/uL (4.2-6.2); RED CELL DISTRIBUTION WIDTH 18.1 % (9.0-15.0); WHITE BLOOD COUNT (AUTO) 4.2 K/uL (4.8-10.8)
[2023-02-16 18:53] LABS: CALCIUM 8.4 mg/dL (8.4-11.0); CREATININE 0.85 mg/dL (0.55-1.30); TOTAL BILIRUBIN 0.1 mg/dL (0.0-1.0)
[2023-02-16] MEDS ORDERED: LIDOCAINE PATCH 5% 1 EA TP ONE (19:15)
[2023-02-16 19:45] LABS: BILIRUBIN,URINE NEGATIVE (NEGATIVE); BLOOD, URINE NEGATIVE (NEGATIVE); CLARITY/URINE CLEAR (CLEAR); COLOR,URINE YELLOW (YELLOW); GLUCOSE,URINE NEGATIVE (NEGATIVE); KETONES,URINE NEGATIVE (NEGATIVE); LEUKOCYTE ESTERASE ,URINE NEGATIVE (NEGATIVE); NITRITE, URINE NEGATIVE (NEGATIVE); PROTEIN URINE NEGATIVE (NEGATIVE); UROBILINOGEN,URINE 0.2 (0.2-1.0)
[2023-02-16] MEDS ORDERED: HYDROmorphone 1 MG/ML INJ. CARTRIDGE IVP ONE (21:15)
[2023-02-16 23:15] VITALS: BP_SYST 111
== END 2023-02-16 23:15 | disposition short-term general hospital (02) ==
LOC: SED 16:22
DX: M54.6 Pain in thoracic spine (principal); M62.838 Other muscle spasm; I10 Essential (primary) hypertension; Z79.4 Long term (current) use of insulin; Z79.899 Other long term (current) drug therapy; Z20.822 Contact with and (suspected) exposure to COVID-19
CPT/HCPCS: 99285; 96374; 87426; 80053; 85025; 36415; 96372; 81003; J1885; J1170; J2270

== ENCOUNTER 2023-03-07 04:43 | Emergency (ER) | payer MEDICAID ==
[~2023-03-07] VITALS: Ht 198.1 cm; Wt 1.4 kg
[2023-03-07 04:50] VITALS: BP_SYST 144
--- NOTE | 2023-03-07 05:09 | NUR ---
Patient arrived to ED 5 for c/o low back pain from [facility] Patient was discharged by his DrFabi with Dilaudid 4mg PO QID. Patient last took it 9 hours ago and he stopped taking it because it was not working for him. Patient his PMH Bipolar, MRSA few weeks ago, pancreatitis 10 years ago. He has past orthopedic surgeries of shoulders and knees. Dr. Leon at bedside to MSE patient. Patient has pain down left leg.
[2023-03-07] MEDS ORDERED: MORPHINE 2 MG/ML INJ. SYRINGE ONE (06:00)
[2023-03-07] MEDS ORDERED: ONDANSETRON 4 MG ODT TAB PO ONE (06:00)
[2023-03-07] MEDS ORDERED: LIDOCAINE PATCH 5% 1 EA TP ONE (06:00)
[2023-03-07] MEDS ORDERED: MORPHINE 4 MG INJ. 4 MG/ML VIAL IM ONE (06:00)
[2023-03-07] MEDS ORDERED: MORPHINE 4 MG INJ. 4 MG/ML VIAL ONE ×2 (06:00→06:07)
[2023-03-07] MEDS ORDERED: BACLOFEN 10 MG TABLET PO ONE (06:00)
[2023-03-07] MEDS ORDERED: BACLOFEN 10 MG TABLET ONE (06:08)
[2023-03-07] MEDS ORDERED: LIDO1ADH22 TP (06:17)
[2023-03-07] MEDS ORDERED: ACET-2634 PO (06:17)
[2023-03-07] MEDS ORDERED: BACL10TA PO (06:17)
--- NOTE | 2023-03-07 06:36 | NUR ---
Patient given written and verbal discharge instructions and verbalizes understanding. ER MD discussed with patient the results and treatment provided. Patient in stable condition. ID arm band removed. Rx of LIDOCAINE, baclofen given. Patient educated on pain management and to follow up with PMD. Pain Scale . Opportunity for questions provided and answered. Medication side effect fact sheet provided.
== END 2023-03-07 06:36 | disposition home or self-care (01) ==
LOC: SED 04:43
DX: S29.012A Strain of muscle and tendon of back wall of thorax, initial encounter (principal); S39.012A Strain of muscle, fascia and tendon of lower back, initial encounter; I10 Essential (primary) hypertension; Z79.4 Long term (current) use of insulin; Z79.899 Other long term (current) drug therapy; X58.XXXA Exposure to other specified factors, initial encounter; Y93.89 Activity, other specified; Y92.89 Other specified places as the place of occurrence of the external cause; Y99.8 Other external cause status
CPT/HCPCS: 99284; 96372; Q0162; J2270 ×2

== ENCOUNTER 2023-05-04 06:30 | Emergency (ER) | payer MEDICAID ==
[~2023-05-04] VITALS: Ht 190.5 cm; Wt 108.9 kg
[~2023-05-04 06:30] MED LIST changes: +BACL10TA PO; +LIDO1ADH22 TP
[2023-05-04 06:39] VITALS: BP_SYST 151; PULSE 86; RESP 16; TEMP 97.9; O2SAT 99
[2023-05-04] MEDS ORDERED: KETOROLAC TROMETHAMINE 60 MG/2 ML VIAL IM ONE (07:00)
[2023-05-04] MEDS ORDERED: HYDROcodone/ACETAMIN 10-325 MG TAB PO ONE (07:00)
[2023-05-04 09:17] VITALS: BP_SYST 136; PULSE 74; RESP 18; TEMP 97.3; O2SAT 97
== END 2023-05-04 08:30 | disposition left against medical advice (07) ==
LOC: SED 06:30
DX: M54.50 Low back pain, unspecified (principal); I10 Essential (primary) hypertension; Z79.4 Long term (current) use of insulin; Z79.899 Other long term (current) drug therapy
CPT/HCPCS: 99283; 72100; 96372; J1885

== ENCOUNTER 2023-06-04 04:24 | Emergency (ER) | payer MEDICAID ==
[~2023-06-04] VITALS: Ht 190.5 cm; Wt 106.6 kg
[2023-06-04 04:45] VITALS: BP_SYST 133; PULSE 74; RESP 18; TEMP 97.3; O2SAT 99
[2023-06-04] MEDS ORDERED: NABU-140 PO (05:30)
[2023-06-04 05:40] VITALS: BP_SYST 133; PULSE 74; RESP 18; TEMP 97.3; O2SAT 99
== END 2023-06-04 05:40 | disposition home or self-care (01) ==
LOC: SED 04:24
DX: S46.812A Strain of other muscles, fascia and tendons at shoulder and upper arm level, left arm, initial encounter (principal); I10 Essential (primary) hypertension; Z79.4 Long term (current) use of insulin; Z79.899 Other long term (current) drug therapy; V49.50XA Passenger injured in collision with unspecified motor vehicles in traffic accident, initial encounter; Y93.89 Activity, other specified; Y92.89 Other specified places as the place of occurrence of the external cause; Y99.8 Other external cause status
CPT/HCPCS: 73030; 99283

== ENCOUNTER 2023-10-02 23:07 | Emergency (ER) | payer MEDICAID, OTHER ==
[~2023-10-02] VITALS: Ht 190.5 cm; Wt 113.4 kg
[~2023-10-02 23:07] MED LIST changes: +NABU-140 PO
[2023-10-02 23:19] VITALS: BP_SYST 175; PULSE 112; RESP 18; TEMP 97.9; O2SAT 99
[2023-10-02] MEDS ORDERED: KETOROLAC TROMETHAMINE 30 MG VIAL IM ONE (23:30)
[2023-10-02] MEDS ORDERED: LIDOCAINE PATCH 5% 1 EA TP ONE (23:59)
[2023-10-03] MEDS ORDERED: MORPHINE 4 MG INJ. 4 MG/ML VIAL IM ONE (00:45)
[2023-10-03 01:17] LABS: BILIRUBIN,URINE NEGATIVE (NEGATIVE); BLOOD, URINE NEGATIVE (NEGATIVE); CLARITY/URINE CLEAR (CLEAR); COLOR,URINE YELLOW (YELLOW); GLUCOSE,URINE NEGATIVE (NEGATIVE); KETONES,URINE NEGATIVE (NEGATIVE); LEUKOCYTE ESTERASE ,URINE NEGATIVE (NEGATIVE); NITRITE, URINE NEGATIVE (NEGATIVE); PH,URINE 6.5 (5.0-8.0); PROTEIN URINE NEGATIVE (NEGATIVE); UROBILINOGEN,URINE 0.2 (0.2-1.0)
[2023-10-03 01:30] VITALS: BP_SYST 135; PULSE 85; RESP 18; TEMP 97.9; O2SAT 100
== END 2023-10-03 01:30 | disposition home or self-care (01) ==
LOC: SED 23:07
DX: G89.29 Other chronic pain (principal); M54.50 Low back pain, unspecified; I10 Essential (primary) hypertension; Z79.4 Long term (current) use of insulin; Z79.899 Other long term (current) drug therapy
CPT/HCPCS: 99284; 81001; 72080; 96372 ×2; 81003; J1885; J2270

== ENCOUNTER 2024-01-10 02:44 | Emergency (ER) | payer OTHER ==
[~2024-01-10] VITALS: Ht 190.5 cm; Wt 110.7 kg
[2024-01-10 03:00] VITALS: BP_SYST 120; PULSE 75; RESP 19; TEMP 97.9; O2SAT 96
[2024-01-10] MEDS ORDERED: KETOROLAC TROMETHAMINE 15 MG VIAL IM ONE (03:15)
[2024-01-10] MEDS ORDERED: methocarbamoL 500 MG TABLET PO ONE (03:15)
[2024-01-10] MEDS ORDERED: predniSONE 20 MG TABLET PO ONE (03:15)
[2024-01-10] MEDS ORDERED: LIDOCAINE PATCH 5% 1 EA TP ONE (03:15)
[2024-01-10 05:39] VITALS: O2SAT 96
== END 2024-01-10 03:57 | disposition left against medical advice (07) ==
LOC: SED 02:44
DX: M54.2 Cervicalgia (principal); G89.29 Other chronic pain; M54.6 Pain in thoracic spine; M54.50 Low back pain, unspecified; Z79.899 Other long term (current) drug therapy
CPT/HCPCS: 99282; J1885; J7512

== ENCOUNTER 2024-02-09 00:24 | Emergency (ER) | payer OTHER ==
[~2024-02-09] VITALS: Ht 190.5 cm; Wt 116.1 kg
[2024-02-09 00:38] VITALS: BP_SYST 136; PULSE 103; RESP 20; TEMP 98.1; O2SAT 99
[2024-02-09] MEDS: LIDOCAINE PATCH 5% 1 EA TP ONE (01:14)
[2024-02-09] MEDS: KETOROLAC TROMETHAMINE 30 MG VIAL IM ONE (01:14)
[2024-02-09] MEDS: CYCLOBENZAPRINE HCL 10 MG TABLET (FLEXERIL) PO ONE (01:14)
[2024-02-09] MEDS: ACETAMINOPHEN 500 MG TABLET PO ONE (01:15)
[2024-02-09] MEDS: MORPHINE 4 MG INJ. 4 MG/ML VIAL IM ONE (01:44)
[2024-02-09] MEDS ORDERED: oxyCODONE HCL 5 MG TABLET ONE (02:38)
[2024-02-09] MEDS: oxyCODONE HCL 5 MG TABLET PO ONE (02:44)
[2024-02-09] MEDS: MORPHINE 4 MG INJ. 4 MG/ML VIAL IVP ONE ×2 (03:26→03:28)
[2024-02-09 03:58] VITALS: BP_SYST 128; PULSE 84; RESP 20; TEMP 98.2; O2SAT 98
== END 2024-02-09 03:58 | disposition home or self-care (01) ==
LOC: SED 00:24
DX: G89.29 Other chronic pain (principal); M54.9 Dorsalgia, unspecified; M54.2 Cervicalgia; I10 Essential (primary) hypertension; F31.9 Bipolar disorder, unspecified; Z79.899 Other long term (current) drug therapy; Z79.2 Long term (current) use of antibiotics
CPT/HCPCS: 99285; 72125; 96374; 72128; 72131; 96372; J1885; J2270

== ENCOUNTER 2024-07-12 23:38 | Emergency (ER) | payer OTHER ==
[~2024-07-12] VITALS: Ht 190.5 cm; Wt 122.5 kg
[2024-07-12 23:53] VITALS: BP_SYST 127; PULSE 114; RESP 18; TEMP 98; O2SAT 97
[2024-07-13] MEDS: MORPHINE 4 MG INJ. 4 MG/ML VIAL IM ONE (00:18)
[2024-07-13 00:40] VITALS: BP_SYST 100; PULSE 100; RESP 18; TEMP 97.4; O2SAT 97
== END 2024-07-13 00:40 | disposition home or self-care (01) ==
LOC: SED 23:38
DX: G89.29 Other chronic pain (principal); M54.9 Dorsalgia, unspecified; I10 Essential (primary) hypertension; F31.9 Bipolar disorder, unspecified; Z79.52 Long term (current) use of systemic steroids; Z79.899 Other long term (current) drug therapy
CPT/HCPCS: 99283; 96372; J2270